=== PATIENT | female | born 1930 | race Caucasian/White ===

== ENCOUNTER 2016-04-08 15:01 | Emergency (ER) | payer OTHER, BC ==
[~2016-04-08] VITALS: Ht 154.9 cm; Wt 98.1 kg
[~2016-04-08 15:01] MED LIST: ADULT LOW DOSE81 M1 PO; ASPIRIN81 M1 PO; ASPIRIN81 M2 PO; ATIVAN0.5 MG; AVAPRO150 MG PO; CRESTOR10 MG; CRESTOR10 MG PO; DILAUDID2 MG PO; DULCOLAX; FUROSEMIDE20 MG; FUROSEMIDE20 MG PO; FUROSEMIDE40 MG PO; HUMALOG100 UNIT/1 SC; HUMALOG100 UNIT/1 SQ; HUMALOG100 UNITS/ SC; IRBESARTAN150 MG; ISORSORBIDE PO; ISOSORBIDE MONO60 MG PO; LANTUS (UNITS)1 UNIT SC; LANTUS 10100 UNITS/ SC; LORAZEPAM0.5 MG PO; METOPROLOL SUCC25 MG PO; MIRALAX; MIRALAX255 GM PO; MULTI VITAMIN1 EACH; MULTIVITAMIN1 EAC2 PO; NITROFURANTOIN50 MG; NITROFURANTOIN50 MG PO; NITROGLYCERIN; NITROGLYCERIN0.4 MG; NITROGLYCERIN0.4 MG PO; RANITIDINE HCL150 M1 PO; RANITIDINE HCL150 MG PO; TOPROL XL6.25 MG; TOPROL XL6.25 MG PO; VITAMIN D1000 INTUN PO; VITAMIN D1000 UNIT PO
[2016-04-08] MEDS ORDERED: LANTUS 3 M100 UNITS1 SC (15:54)
[2016-04-08] MEDS ORDERED: NOVOLOG 10100 UNITS/ SC (15:54)
[2016-04-08] MEDS ORDERED: MOTRIN600 MG PO (16:30)
[2016-04-08] MEDS ORDERED: ULTRACET1 TABLET PO (16:30)
[2016-04-08 16:50] VITALS: BP 135/78
== END 2016-04-08 16:54 | disposition home or self-care (01) ==
LOC: EME 15:01
DX: M54.12 Radiculopathy, cervical region (principal); M62.838 Other muscle spasm; E11.9 Type 2 diabetes mellitus without complications; Z79.4 Long term (current) use of insulin; Z79.82 Long term (current) use of aspirin; Z95.5 Presence of coronary angioplasty implant and graft
CPT/HCPCS: 93005; 99281; 99284; J3010